=== PATIENT | male | born 1960 | race Caucasian/White ===

== ENCOUNTER 2023-06-09 05:57 | Day surgery (SDC) | payer BC ==
[~2023-06-09] VITALS: Ht 177.8 cm; Wt 77.3 kg
[~2023-06-09 05:57] MED LIST: ADVIL200 MG PO; MILLIPRED5 MG PO; TURMERIC500 MG PO
[2023-06-09 06:11] VITALS: BP 126/77
--- NOTE | 2023-06-09 07:15 | NUR ---
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 BOTH DENIED NEEDS. CONSENTED TO PRAYER. PRAYED FOR SUCCESSFUL PROCDURE AND RECOVERY.
[2023-06-09] MEDS ORDERED: ACETAMINOPHEN500 MG PO (08:12)
[2023-06-09] MEDS ORDERED: OXYCODON-ACETA1 EAC2 PO (08:12)
[2023-06-09] MEDS ORDERED: MOTRIN IB200 MG PO (08:12)
--- NOTE | 2023-06-09 08:13 | NUR ---
06/09/23 0813 Sheets,Julianne 0800 PT ARRIVED TO PACU ON 10L VIA MASK, ORAL AIRWAY IN PLACE AND RESP EVEN AND UNLABORED. 0805 PT STARTING TO WAKE AND ORAL AIRWAY REMOVED, PT FOLLOWED COMMANDS TO OPEN MOUTH. PT DENIES PAIN AND NAUSEA. 08 PT ROLLS TO BACK AND EASILY FALLS BACK TO SLEEP, WITH SMALL AMOUNT OF SNORING NOTED, O2 REMOVED.
[2023-06-09 08:31] VITALS: BP 112/64
--- NOTE | 2023-06-09 11:29 | OR ---
[facility] [address], [place] [address] Signed DATE OF OPERATION: 06/09/2023 SURGEON: Lyric Brown MD PREOPERATIVE DIAGNOSIS: Right posterior inferior soft tissue mass of thorax. POSTOPERATIVE DIAGNOSES: 1. Right posterior inferior soft tissue mass of thorax. 2. Consistent with subfascial 4 cm lipoma. PROCEDURE: Excision of posterior thorax soft tissue mass subfascial 4 cm. ANESTHESIA: Local with monitored anesthesia care, Lyric Marcum CRNA and local 10 mL of 0.25% Marcaine with epinephrine. INDICATION: This 63-year-old white man is from [place], [place]. He is a patient of JOAQUÍN Stevens and also saw Dr. Rubio in [place], [place] with a soft tissue mass in the right posterior thorax. The patient has long-standing, thought this was a "cyst." He has never had drainage from it or other issues, though it has increased in size and now is uncomfortable for him. On the basis of these issues, he wishes this to be excised. Clinical examination shows this is most consistent with a lipoma. It is well circumscribed, relatively deep and without signs of erythema or other signs of infection or other problem. He understands the risk of bleeding, infection, and recurrence related to excision of the mass whatever its origin and wished to proceed. FINDINGS: The lesion was a lipoma approximately 4 cm in size with a smooth wall. It is extending down to the posterior thoracic fascia. Complete excision was undertaken and layered closure was accomplished. DESCRIPTION OF PROCEDURE: The patient was brought to the operating room, placed in the lateral position left side down. He was given intravenous sedation with propofol infusional technique. Preoperative antibiotic Ancef was given. Sequential compression device stockings were used and heparin subcutaneously administered. He was secured to the table and careful padding of pressure points undertaken. The table was rotated slightly left side down Electronically Signed By: LYRIC BROWN MD 06/09/23 1129 PATIENT NAME: CORDELIA LEE OPERATIVE REPORT DATE OF : 60 REPORT #: [id number] PHYSICIAN: LYRIC BROWN MD PCP: JENNIE MILNER REPORT IS CONFIDENTIAL AND NOT TO BE RELEASED WITHOUT AUTHORIZATION [facility] [address] [place], [place] [address] Signed allowing for better exposure of the lesion which is just to the right of the midline in the lower thorax. The area was prepared with a chlorhexidine solution after clipping and ultimately draped sterilely. Examination of the line of skin tension over the lesion confirmed the skin tension lines to be somewhat curvilinear in relation to the lesion itself. These areas were marked and a curvilinear incision was made along the line of skin tension. Dissection was carried through the dermis with electrocautery. Further dissection allowed for dissection more deeply. It appeared to emanate from the posterior thoracic fascia. It was smooth walled and consistent with lipoma and was completely excised using electrocautery. 10 mL of 0.25% Marcaine with epinephrine was injected locally. The wound was closed in layers with interrupted 2-0 Vicryl in the deepest layer and in the deep dermal layer and ultimately a running subcutaneous 3-0 Vicryl for the skin itself. Steri-Strips were applied as was an Acticoat dressing. The patient was allowed to emerge from sedation and taken to the recovery room in good condition having suffered no complications. Sponge, needle, and instrument counts were reported as correct x3. MD BETTY Soto/DEWAYNEL /[id number] cc: MD Jennie Hansen PA Copies: JENNIE MILNER ~ Electronically Signed By: LYRIC BROWN MD 06/09/23 1129 PATIENT NAME: CORDELIA LEE OPERATIVE REPORT DATE OF : 60 REPORT #: [id number] PHYSICIAN: LYRIC BROWN MD PCP: JENNIE MILNER REPORT IS CONFIDENTIAL AND NOT TO BE RELEASED WITHOUT AUTHORIZATION
--- NOTE | 2023-06-14 18:18 | PATH ---
[facility] [address] [facility] [place] [address] Signed SPECIMEN(S): A MASS, RT POSTERIOR THORAX SPECIMEN SOURCE: A. MASS, RT POSTERIOR THORAX CLINICAL HISTORY: Soft tissue mass right posterior thorax, excision. Pre: Right posterior thorax mass. Post: Right posterior thorax mass. 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 JVR:xi MICROSCOPIC EXAMINATION: Histologic sections of all submitted blocks are examined by light microscopy. These findings, together with the gross examination, support the pathologic diagnosis. GROSS DESCRIPTION: The specimen, labeled and designated "Sherri Lee, " and designated on the requisition "soft tissue mass right posterior thorax," is received in formalin and consists of a 16 gram portion of yellow-rahman adipose tissue that is 4.3 x 4.2 x 1.8 cm. The specimen is partially surfaced by a transparent membranous tissue. The tissue is inked and serially sectioned to reveal a yellow homogeneous cut surface. [employer] sections are submitted in (A1-A2). FB (under the direct supervision of a pathologist) The Gross Description was prepared using a voice recognition system. The report was reviewed for accuracy; however, sound-alike word errors, addition and/or deletions may occur. If there is any question about this report, please contact Client Services. PERFORMING LABORATORY: Technical component was performed by [facility], [address] [place] [id number] (CLIA# [id number]). Professional interpretation was performed by [facility], [address] [place] [id number] (CLIA#: [id number]). Diagnostician: Juan F Naik MD Pathologist PATIENT NAME: CORDELIA LEE PATHOLOGY DATE OF : 60 REPORT #: [id number] PHYSICIAN: INCREED PATHOLOGY PCP: JENNIE MILNER REPORT IS CONFIDENTIAL AND NOT TO BE RELEASED WITHOUT AUTHORIZATION [address] [address] Signed Electronically Signed 06/14/2023 Copies: ~ PATIENT NAME: CORDELIA LEE PATHOLOGY DATE OF : 60 REPORT #: [id number] PHYSICIAN: [facility] PATHOLOGY PCP: JENNIE MILNER REPORT IS CONFIDENTIAL AND NOT TO BE RELEASED WITHOUT AUTHORIZATION
== END 2023-06-09 08:43 | disposition home or self-care (01) ==
LOC: DS 05:57 → OPS 05:57 → DS 07:30 → OPS 07:30
PROVIDERS: ATTEND Surgery
PROC: 0JB70ZZ Excision of Back Subcutaneous Tissue and Fascia, Open Approach (ICD-10-PCS; principal; 2023-06-09 07:30)
DX: D21.3 Benign neoplasm of connective and other soft tissue of thorax (principal); Z79.899 Other long term (current) drug therapy
CPT/HCPCS: 00400; J0690; J1100; J1644; J1885; J2250; J2405; J2704; J2765; J3010; J7121